=== PATIENT | male | born 1960 | race Two or more races ===

== ENCOUNTER → 2016-11-06 | Outpatient (CLI) | payer MEDICAID ==
[~2016-11-06] MED LIST: ADENOSINE 90 MG/30 ML INJ IV ONE; ADENOSINE 93 MG in GIVE UN-DILUTED 0 ML IV ONE
== END | disposition home or self-care (01) ==
LOC: Rad HDHVI 12:30
PROVIDERS: ATTEND Internal Medicine Cardiovascular Disease
DX: I25.10 Atherosclerotic heart disease of native coronary artery without angina pectoris (principal); I21.3 ST elevation (STEMI) myocardial infarction of unspecified site; I10 Essential (primary) hypertension; E11.9 Type 2 diabetes mellitus without complications; E78.5 Hyperlipidemia, unspecified; Z95.9 Presence of cardiac and vascular implant and graft, unspecified
CPT/HCPCS: 78452; 93005; 93306; 96374; 96375; A9500; J0153

== ENCOUNTER → 2016-11-21 | Outpatient (CLI) | payer MEDICAID ==
[~2016-11-21] MED LIST changes: -ADENOSINE 90 MG/30 ML INJ IV ONE; -ADENOSINE 93 MG in GIVE UN-DILUTED 0 ML IV ONE; +ASPI81TA27 PO; +ATOR40TA52 PO; +CLOP75TA41 PO; +FLUO-125 PO; +GABA-497 PO; +INSLANTI SC; +LISI-275 PO; +METF-370 PO; +METO25TA5 PO; +OME20T PO; +SACU1TAB PO; +SITA50TA PO
== END | disposition home or self-care (01) ==
LOC: Rad HDHVI 10:53
PROVIDERS: ATTEND Internal Medicine Cardiovascular Disease
DX: Z01.818 Encounter for other preprocedural examination (principal); I10 Essential (primary) hypertension; E78.00 Pure hypercholesterolemia, unspecified; E11.9 Type 2 diabetes mellitus without complications
CPT/HCPCS: 76770

== ENCOUNTER → 2016-11-28 | Outpatient (CLI) | payer MEDICAID ==
[~2016-11-28] MED LIST changes: -ASPI81TA27 PO; -ATOR40TA52 PO; -CLOP75TA41 PO; -FLUO-125 PO; -GABA-497 PO; -INSLANTI SC; +IOHEXOL 350 MG/ML 100ML IJ ONE; -LISI-275 PO; -METF-370 PO; -METO25TA5 PO; -OME20T PO; -SACU1TAB PO; -SITA50TA PO
[2016-11-28 10:30] VITALS: BP 122/82
[2016-11-28 12:00] VITALS: BP 131/84
== END | disposition home or self-care (01) ==
LOC: Rad HDHVI 10:24
PROVIDERS: ATTEND Internal Medicine Cardiovascular Disease
DX: I25.10 Atherosclerotic heart disease of native coronary artery without angina pectoris (principal); E11.9 Type 2 diabetes mellitus without complications; I21.3 ST elevation (STEMI) myocardial infarction of unspecified site; I10 Essential (primary) hypertension; E78.5 Hyperlipidemia, unspecified; Z95.9 Presence of cardiac and vascular implant and graft, unspecified
CPT/HCPCS: 82565; 96374; Q9967

== ENCOUNTER → 2016-12-05 | Outpatient (CLI) | payer MEDICAID ==
[~2016-12-05] MED LIST changes: +ASPI81TA27 PO; +ATOR40TA52 PO; +CLOP75TA41 PO; +FLUO-125 PO; +GABA-497 PO; +INSLANTI SC; -IOHEXOL 350 MG/ML 100ML IJ ONE; +LISI-275 PO; +METF-370 PO; +METO25TA5 PO; +OME20T PO; +SACU1TAB PO; +SITA50TA PO
[2016-12-05 11:05] VITALS: BP 116/83
[2016-12-05 11:35] VITALS: BP 124/80
== END | disposition home or self-care (01) ==
LOC: Rad HDHVI 10:48
PROVIDERS: ATTEND Internal Medicine Cardiovascular Disease
DX: Z01.818 Encounter for other preprocedural examination (principal)
CPT/HCPCS: 71020; 93005; G0463

== ENCOUNTER → 2017-01-08 | Outpatient (CLI) | payer MEDICAID ==
[~2017-01-08] VITALS: Ht 182.9 cm; Wt 111.1 kg
[2017-01-08 09:15] VITALS: BP 125/91
[2017-01-08 09:40] VITALS: BP 122/82
[2017-01-08 13:09] LABS: Basophils # (auto) 0.1 uL; Basophils % (auto) 0.8 % (0.0-2.0); Eosinophils # (auto) 0.2 uL; Eosinophils % (auto) 1.9 % (0.0-7.0); Hematocrit 39.9 % (41.0-53.0); Hemoglobin 13.2 g/dL (13.5-17.5); Lymphocytes # (auto) 1.7 uL; Lymphocytes % (auto) 21.2 % (10.0-50.0); Mean Corpuscular Hemoglobin 28.4 pg (28.0-32.0); Mean Corpuscular Hgb Conc. 33.1 g/dL (32.0-36.0); Mean Corpuscular Volume 85.9 fL (80.0-100.0); Mean Platelet Volume 10.7 fL (6.9-10.8); Monocytes # (auto) 0.7 uL; Monocytes % (auto) 8.6 % (0.0-12.0); Neutrophils # (auto) 5.5 uL; Neutrophils % (auto) 67.5 % (37.0-80.0); Nucleated Red Blood Cells % 0.2 %; Platelet Count (auto) 191 10^3/uL (140-450); Red Cell Distribution Width 14.5 % (11.8-14.3); White Blood Cell 8.1 10^3/uL (4.4-10.8)
[2017-01-08 13:14] LABS: INR 0.93 (0.9-1.15); Partial Thromboplastin Time 26.9 sec (22.64-33.71); Prothrombin Time 10.1 sec (9.37-12.3)
[2017-01-08 13:25] LABS: BUN/Creatinine Ratio 21.2; Calcium 8.3 mg/dL (8.5-10.1); Potassium 4.1 mmol/L (3.5-5.1)
== END | disposition home or self-care (01) ==
LOC: Rad HDHVI 09:03
PROVIDERS: ATTEND Internal Medicine Cardiovascular Disease
DX: Z01.818 Encounter for other preprocedural examination (principal); I51.7 Cardiomegaly; E78.00 Pure hypercholesterolemia, unspecified; I10 Essential (primary) hypertension; D64.9 Anemia, unspecified; R79.1 Abnormal coagulation profile; Z95.9 Presence of cardiac and vascular implant and graft, unspecified
CPT/HCPCS: 36415; 71020; 80048; 85025; 85610; 85730; 93005; G0463

== ENCOUNTER → 2017-07-05 | Outpatient (CLI) | payer MEDICAID ==
[~2017-07-05] MED LIST changes: -GABA-497 PO; +GABA300C10 PO
== END | disposition home or self-care (01) ==
LOC: Rad HDHVI 08:00
PROVIDERS: ATTEND Internal Medicine Cardiovascular Disease
DX: I34.0 Nonrheumatic mitral (valve) insufficiency (principal); I42.0 Dilated cardiomyopathy; E11.9 Type 2 diabetes mellitus without complications; I11.0 Hypertensive heart disease with heart failure; I50.23 Acute on chronic systolic (congestive) heart failure; E78.5 Hyperlipidemia, unspecified; Z87.891 Personal history of nicotine dependence
CPT/HCPCS: 93306

== ENCOUNTER 2018-10-01 11:49 | Inpatient (IN) | payer MEDICAID ==
[~2018-10-01] VITALS: Ht 182.9 cm; Wt 107.5 kg
[~2018-10-01 11:49] MED LIST changes: +ASPI-404 PO; -ASPI81TA27 PO
[2018-10-01] MEDS ORDERED: SODIUM CHLORIDE 0.9% 1,000 ML IV ONE ×2 (11:55→15:30)
[2018-10-01] MEDS ORDERED: DEXTROSE (50%) 50ML SYRG IV PRN ×2 (12:00→20:00)
[2018-10-01] MEDS ORDERED: ASPirin 81 mg TAB PO ONE (12:00)
[2018-10-01 13:04] LABS: Basophils # (auto) 0 uL; Basophils % (auto) 0.6 % (0.0-2.0); Eosinophils # (auto) 0.1 uL; Eosinophils % (auto) 1.3 % (0.0-7.0); Hematocrit 43.6 % (41.0-53.0); Hemoglobin 14.5 g/dL (13.5-17.5); Lymphocytes # (auto) 1.7 uL; Lymphocytes % (auto) 24.8 % (10.0-50.0); Mean Corpuscular Hemoglobin 29.2 pg (28.0-32.0); Mean Corpuscular Hgb Conc. 33.2 g/dL (32.0-36.0); Monocytes # (auto) 0.6 uL; Monocytes % (auto) 8.7 % (0.0-12.0); Neutrophils # (auto) 4.5 uL; Neutrophils % (auto) 64.6 % (37.0-80.0); Nucleated Red Blood Cells % 0.3 %; Platelet Count (auto) 174 10^3/uL (140-450); Red Blood Cells 4.96 10^6/uL (4.5-5.90); Red Cell Distribution Width 14.9 % (11.8-14.3)
[2018-10-01 13:07] LABS: Albumin 3.8 g/dL (3.4-5.0); Anion Gap 9 (5-15); Blood Urea Nitrogen 29 mg/dL (7-18); Calcium 9.5 mg/dL (8.5-10.1); Carbon Dioxide 24 mmol/L (21-32); Chloride 99 mmol/L (98-107); Potassium 4.8 mmol/L (3.5-5.1); Sodium 132 mmol/L (136-145)
[2018-10-01 13:09] LABS: Alanine Aminotransferase 125 U/L (16-61); Aspartate Aminotransferase 76 U/L (15-37); GFR African American 51 mL/min; GFR Non-African American 42 mL/min
[2018-10-01 13:17] LABS: Alkaline Phosphatase 109 U/L (45-117); Bilirubin, Total 0.7 mg/dL (0.2-1.0)
[2018-10-01 13:19] LABS: INR < 0.93 (0.9-1.15); Partial Thromboplastin Time 25.6 sec (23.64-32.05)
[2018-10-01 13:21] LABS: BUN/Creatinine Ratio 16.5
[2018-10-01 13:25] LABS: Glucose 600 mg/dL (74-106)
[2018-10-01] MEDS ORDERED: NITROGLYCERIN 0.4 MG SL TAB SL PRN (15:00)
[2018-10-01] MEDS ORDERED: MORPHINE SULF INJ 2 MG/ML SYRINGE 1ML IV PRN (15:00)
[2018-10-01] MEDS ORDERED: SODIUM CHLORIDE 0.9% 1,000 ML IV SCH (15:00)
[2018-10-01] MEDS ORDERED: InsuLIN REG 1unit/0.01ml Soln (100units/ml) IV ONE (15:30)
[2018-10-01] MEDS: ACCU-CHEK COMFORT CURVE STRIP VI SCH ×11 (15:46→23:22)
[2018-10-01] MEDS: SODIUM CHLORIDE 0.9% 1,000 ML IV SCH ×2 (16:08→23:29)
[2018-10-01] MEDS: InsuLIN R (HUMAN) 100 UNITS in SODIUM CHL 0.9% 99 ML IV SCH (16:09)
[2018-10-01 17:12] LABS: Urine Bacteria NONE SEEN /hpf (None Seen); Urine Blood Negative /uL (Negative); Urine Specific Gravity 1.017 (1.001-1.035); Urine WBC <1 /hpf (0 - 3)
[2018-10-01] MEDS ORDERED: GABA-339 PO (18:37)
[2018-10-01] MEDS ORDERED: FURO40TA4 PO (18:37)
[2018-10-01] MEDS ORDERED: POTA10TA51 PO (18:38)
[2018-10-01] MEDS ORDERED: INSULIN LANTUS (GLARGINE) 1 /0.01ml (100units/ml) SC ONE (20:00)
[2018-10-01] MEDS: InsuLIN REG 1unit/0.01ml Soln (100units/ml) SC SCH (20:21)
[2018-10-01] MEDS ORDERED: ATORVASTATIN 20 MG TAB PO SCH (22:00)
[2018-10-01] MEDS: FAMOTIDINE (10MG/ML) 2ML VL IV SCH (23:05)
[2018-10-01] MEDS: METOPROLOL TARTRATE 25 MG TAB PO SCH (23:05)
[2018-10-01] MEDS: SACUBITRIL-VALSARTAN 24mg/26mg TAB PO SCH (23:05)
[2018-10-02] MEDS: ACCU-CHEK COMFORT CURVE STRIP VI SCH ×4 (00:53→08:07)
[2018-10-02] MEDS: InsuLIN REG 1unit/0.01ml Soln (100units/ml) SC SCH ×3 (01:02→08:00)
[2018-10-02 05:51] LABS: Basophils # (auto) 0 uL; Basophils % (auto) 0.6 % (0.0-2.0); Eosinophils # (auto) 0.1 uL; Eosinophils % (auto) 2.4 % (0.0-7.0); Hematocrit 38.6 % (41.0-53.0); Hemoglobin 13.2 g/dL (13.5-17.5); Lymphocytes # (auto) 2.3 uL; Lymphocytes % (auto) 38.9 % (10.0-50.0); Mean Corpuscular Hemoglobin 29.8 pg (28.0-32.0); Mean Corpuscular Hgb Conc. 34.3 g/dL (32.0-36.0); Mean Corpuscular Volume 86.9 fL (80.0-100.0); Monocytes # (auto) 0.5 uL; Monocytes % (auto) 8.2 % (0.0-12.0); Neutrophils # (auto) 2.9 uL; Neutrophils % (auto) 49.9 % (37.0-80.0); Nucleated Red Blood Cells % 0.1 %; Platelet Count (auto) 143 10^3/uL (140-450); Red Blood Cells 4.44 10^6/uL (4.5-5.90); Red Cell Distribution Width 14.3 % (11.8-14.3); White Blood Cell 5.8 10^3/uL (4.4-10.8)
[2018-10-02 06:08] LABS: Calcium 8.7 mg/dL (8.5-10.1)
[2018-10-02 06:38] LABS: Potassium 3.9 mmol/L (3.5-5.1)
[2018-10-02 06:42] LABS: BUN/Creatinine Ratio 22.1; Bilirubin, Total 0.6 mg/dL (0.2-1.0); Total Protein 6.7 g/dL (6.4-8.2)
[2018-10-02] MEDS: SODIUM CHLORIDE 0.9% 1,000 ML IV SCH (07:43)
[2018-10-02] MEDS ORDERED: CLOPIDOGREL BISULFATE 75 MG TAB PO SCH (10:00)
[2018-10-02] MEDS ORDERED: ASPirin-EC 81 mg tab PO SCH (10:00)
[2018-10-02] MEDS: SACUBITRIL-VALSARTAN 24mg/26mg TAB PO SCH (10:10)
[2018-10-02] MEDS: FAMOTIDINE (10MG/ML) 2ML VL IV SCH (10:10)
[2018-10-02] MEDS: METOPROLOL TARTRATE 25 MG TAB PO SCH (10:11)
[2018-10-02 11:22] VITALS: BP 98/48
[2018-10-02] MEDS ORDERED: INSULIN LANTUS (GLARGINE) 1 /0.01ml (100units/ml) SC SCH (22:00)
== END 2018-10-02 23:37 | disposition home or self-care (01) | DRG 469 ==
LOC: ER 11:49 → OVERFLOW 11:50
PROVIDERS: ADMIT Nurse Practitioner Acute Care; ATTEND Internal Medicine
DX: N17.0 Acute kidney failure with tubular necrosis (principal); E11.40 Type 2 diabetes mellitus with diabetic neuropathy, unspecified; I42.9 Cardiomyopathy, unspecified; E44.1 Mild protein-calorie malnutrition; E11.65 Type 2 diabetes mellitus with hyperglycemia; L02.411 Cutaneous abscess of right axilla; F17.210 Nicotine dependence, cigarettes, uncomplicated; I10 Essential (primary) hypertension; E66.9 Obesity, unspecified; E78.5 Hyperlipidemia, unspecified; I25.10 Atherosclerotic heart disease of native coronary artery without angina pectoris; Z79.4 Long term (current) use of insulin; Z95.5 Presence of coronary angioplasty implant and graft; Z95.810 Presence of automatic (implantable) cardiac defibrillator; Z68.32 Body mass index [BMI] 32.0-32.9, adult; Z91.018 Allergy to other foods; Z79.02 Long term (current) use of antithrombotics/antiplatelets; Z79.899 Other long term (current) drug therapy; Z82.49 Family history of ischemic heart disease and other diseases of the circulatory system; Z83.3 Family history of diabetes mellitus
CPT/HCPCS: 36415; 71046; 80053; 80061; 81001; 82962; 83036; 83880; 84484; 85025; 85610; 85730; 93005; G0378; J1815; J3490

== ENCOUNTER 2019-12-17 14:23 | Emergency (ER) | payer MEDICAID ==
[~2019-12-17] VITALS: Ht 180.3 cm; Wt 108.9 kg
[~2019-12-17 14:23] MED LIST changes: -ASPI-404 PO; +ASPI-543 PO; +FURO40TA4 PO; +GABA-339 PO; -GABA300C10 PO; -LISI-275 PO; +POTA10TA51 PO; -SITA50TA PO
[2019-12-17 14:36] VITALS: BP 121/73
[2019-12-17 14:56] LABS: Urine WBC None Seen /hpf (0 - 3)
[2019-12-17 15:14] LABS: Basophils # (auto) 0.1 10 ^3/uL (0-0.2); Basophils % (auto) 0.7 % (0.0-2.0); Eosinophils # (auto) 0.1 10 ^3/uL (0-0.8); Eosinophils % (auto) 1.2 % (0.0-7.0); Hematocrit 43.6 % (41.0-53.0); Hemoglobin 14.5 g/dL (13.5-17.5); Lymphocytes # (auto) 2.5 10 ^3/uL (0.4-5.4); Lymphocytes % (auto) 30.8 % (10.0-50.0); Mean Corpuscular Hemoglobin 29.2 pg (28.0-32.0); Mean Corpuscular Hgb Conc. 33.3 g/dL (32.0-36.0); Mean Corpuscular Volume 87.7 fL (80.0-100.0); Monocytes # (auto) 0.7 10 ^3/uL (0-1.3); Monocytes % (auto) 8.7 % (0.0-12.0); Neutrophils # (auto) 4.8 10 ^3/uL (1.6-8.6); Neutrophils % (auto) 58.6 % (37.0-80.0); Nucleated Red Blood Cells % 0.1 %; Platelet Count (auto) 203 10^3/uL (140-450); Red Blood Cells 4.98 10^6/uL (4.5-5.90); Red Cell Distribution Width 13.9 % (11.8-14.3); White Blood Cell 8.1 10^3/uL (4.4-10.8)
[2019-12-17 15:26] LABS: Urine Bacteria NONE SEEN /hpf (None Seen); Urine Blood TRACE /uL (Negative); Urine Specific Gravity 1.023 (1.001-1.035)
[2019-12-17 15:28] LABS: Alanine Aminotransferase 85 U/L (16-61); Albumin 3.7 g/dL (3.4-5.0); Anion Gap 4 (5-15); Blood Urea Nitrogen 13 mg/dL (7-18); Calcium 9.1 mg/dL (8.5-10.1); Carbon Dioxide 27 mmol/L (21-32); Chloride 105 mmol/L (98-107); Potassium 4.9 mmol/L (3.5-5.1); Sodium 136 mmol/L (136-145)
[2019-12-17 15:33] LABS: Alkaline Phosphatase 124 U/L (45-117); Aspartate Aminotransferase 60 U/L (15-37); Bilirubin, Total 0.5 mg/dL (0.2-1.0); GFR African American 67 mL/min; GFR Non-African American 55 mL/min; Total Protein 8.2 g/dL (6.4-8.2)
[2019-12-17 15:38] LABS: Glucose 440 mg/dL (74-106)
[2019-12-17 15:39] LABS: BUN/Creatinine Ratio 9.4
[2019-12-17] MEDS ORDERED: InsuLIN REG 1unit/0.01ml Soln (100units/ml) SC ONE (16:15)
== END 2019-12-17 21:30 | disposition left against medical advice (07) ==
LOC: ER 14:23
DX: E11.65 Type 2 diabetes mellitus with hyperglycemia (principal); E11.22 Type 2 diabetes mellitus with diabetic chronic kidney disease; I12.9 Hypertensive chronic kidney disease with stage 1 through stage 4 chronic kidney disease, or unspecified chronic kidney disease; N18.30 Chronic kidney disease, stage 3 unspecified; R74.8 Abnormal levels of other serum enzymes; F17.210 Nicotine dependence, cigarettes, uncomplicated; E78.5 Hyperlipidemia, unspecified; Z90.49 Acquired absence of other specified parts of digestive tract; Z79.899 Other long term (current) drug therapy; Z79.82 Long term (current) use of aspirin
CPT/HCPCS: 36415; 80053; 81001; 82010; 82962; 83880; 84484; 85025; 93005

== ENCOUNTER 2020-10-26 15:06 | Emergency (ER) | payer MEDICAID ==
[~2020-10-26] VITALS: Ht 177.8 cm; Wt 113.4 kg
[~2020-10-26 15:06] MED LIST changes: -CLOP75TA41 PO; +CLOP75TA70 PO
[2020-10-26 16:13] LABS: Basophils # (auto) 0.1 10 ^3/uL (0-0.2); Basophils % (auto) 0.9 % (0.0-2.0); Eosinophils # (auto) 0.1 10 ^3/uL (0-0.8); Eosinophils % (auto) 2.4 % (0.0-7.0); Hematocrit 30.2 % (41.0-53.0); Hemoglobin 9.9 g/dL (13.5-17.5); Lymphocytes # (auto) 0.9 10 ^3/uL (0.4-5.4); Lymphocytes % (auto) 14.6 % (10.0-50.0); Mean Corpuscular Hgb Conc. 32.6 g/dL (32.0-36.0); Mean Corpuscular Volume 85.9 fL (80.0-100.0); Monocytes # (auto) 0.6 10 ^3/uL (0-1.3); Monocytes % (auto) 10.4 % (0.0-12.0); Neutrophils # (auto) 4.4 10 ^3/uL (1.6-8.6); Neutrophils % (auto) 71.7 % (37.0-80.0); Nucleated Red Blood Cells % 0.1 %; Red Blood Cells 3.52 10^6/uL (4.5-5.90); Red Cell Distribution Width 18.1 % (11.8-14.3); White Blood Cell 6.1 10^3/uL (4.4-10.8)
[2020-10-26 16:22] LABS: Albumin 2.6 g/dL (3.4-5.0); Anion Gap 6 (5-15); Blood Urea Nitrogen 34 mg/dL (7-18); Calcium 8.6 mg/dL (8.5-10.1); Carbon Dioxide 24 mmol/L (21-32); Chloride 109 mmol/L (98-107); Glucose 196 mg/dL (74-106); Potassium 5.2 mmol/L (3.5-5.1); Sodium 139 mmol/L (136-145)
[2020-10-26 16:25] LABS: Alanine Aminotransferase 24 U/L (16-61); Aspartate Aminotransferase 32 U/L (15-37); GFR African American 64 mL/min; GFR Non-African American 53 mL/min
[2020-10-26 16:29] LABS: Alkaline Phosphatase 310 U/L (45-117); Bilirubin, Total 0.8 mg/dL (0.2-1.0)
[2020-10-26 16:33] LABS: BUN/Creatinine Ratio 23.6
[2020-10-26 19:52] VITALS: BP 122/84
== END 2020-10-26 19:56 | disposition admitted as inpatient to this hospital (09) ==
LOC: EDBD 15:06 → ER 15:06
DX: I13.0 Hypertensive heart and chronic kidney disease with heart failure and stage 1 through stage 4 chronic kidney disease, or unspecified chronic kidney disease (principal); E11.22 Type 2 diabetes mellitus with diabetic chronic kidney disease; E11.65 Type 2 diabetes mellitus with hyperglycemia; N18.9 Chronic kidney disease, unspecified; I50.9 Heart failure, unspecified; I25.10 Atherosclerotic heart disease of native coronary artery without angina pectoris; E78.5 Hyperlipidemia, unspecified; F17.210 Nicotine dependence, cigarettes, uncomplicated; Z90.49 Acquired absence of other specified parts of digestive tract; Z95.0 Presence of cardiac pacemaker
CPT/HCPCS: 36415; 71045; 80053; 83880; 84484; 85025; 93005; 93970

== ENCOUNTER 2021-02-17 13:14 | Inpatient (IN) | payer MEDICAID ==
[~2021-02-17] VITALS: Ht 180.3 cm; Wt 90.0 kg
[2021-02-17] MEDS ORDERED: FUROSEMIDE 40 MG/4 ML VIAL IV ONE (17:30)
[2021-02-17 17:37] LABS: Basophils # (auto) 0.1 10 ^3/uL (0-0.2); Basophils % (auto) 1.4 % (0.0-2.0); Eosinophils # (auto) 0.2 10 ^3/uL (0-0.8); Eosinophils % (auto) 3.2 % (0.0-7.0); Hematocrit 32.2 % (41.0-53.0); Hemoglobin 10.4 g/dL (13.5-17.5); Lymphocytes # (auto) 1.3 10 ^3/uL (0.4-5.4); Lymphocytes % (auto) 23.1 % (10.0-50.0); Mean Corpuscular Hemoglobin 26.3 pg (28.0-32.0); Mean Corpuscular Hgb Conc. 32.3 g/dL (32.0-36.0); Mean Corpuscular Volume 81.5 fL (80.0-100.0); Monocytes # (auto) 0.5 10 ^3/uL (0-1.3); Monocytes % (auto) 9.3 % (0.0-12.0); Neutrophils # (auto) 3.6 10 ^3/uL (1.6-8.6); Red Blood Cells 3.95 10^6/uL (4.5-5.90); White Blood Cell 5.7 10^3/uL (4.4-10.8)
[2021-02-17 17:39] LABS: Red Cell Distribution Width 21.2 % (11.8-14.3)
[2021-02-17 17:42] LABS: Albumin 3.1 g/dL (3.4-5.0); Calcium 8.8 mg/dL (8.5-10.1); Magnesium 3.2 mg/dL (1.6-2.6); Potassium 4.1 mmol/L (3.5-5.1)
[2021-02-17 17:47] LABS: BUN/Creatinine Ratio 20.4; Bilirubin, Total 2.3 mg/dL (0.2-1.0); Total Protein 8.2 g/dL (6.4-8.2)
[2021-02-18] MEDS ORDERED: GABAPENTIN 300 MG CAP PO ONE (05:45)
[2021-02-18] MEDS ORDERED: FUROSEMIDE 40 MG/4 ML VIAL IV ONE (07:15)
[2021-02-18] MEDS ORDERED: HYDROcodone-ACET 10/325MG TAB PO ONE (10:00)
[2021-02-18] MEDS ORDERED: APIX5TAB PO (10:36)
[2021-02-18] MEDS ORDERED: LURA40TA PO (10:36)
[2021-02-18] MEDS ORDERED: CYCL-839 PO (10:42)
[2021-02-18] MEDS ORDERED: CARV3.1240 PO (10:42)
[2021-02-18] MEDS ORDERED: DULO60CA PO (10:43)
[2021-02-18] MEDS ORDERED: SACU1TAB7 PO (10:45)
[2021-02-18] MEDS ORDERED: NITR0.4S29 SL (10:47)
[2021-02-18] MEDS ORDERED: INSLANTI SC (10:50)
[2021-02-18] MEDS ORDERED: HYDR-4798 PO (10:51)
[2021-02-18] MEDS ORDERED: CYCLOBENZAPRINE HCL 10 MG TAB PO PRN (11:45)
[2021-02-18] MEDS ORDERED: NITROGLYCERIN 0.4 MG SL TAB SL PRN (11:45)
[2021-02-18] MEDS ORDERED: GABAPENTIN 300 MG CAP PO PRN (12:00)
[2021-02-18] MEDS: INSULIN LANTUS (GLARGINE) 1 /0.01ml (100units/ml) SC SCH (20:20)
[2021-02-18] MEDS: FUROSEMIDE 40 MG/4 ML VIAL IV SCH (20:53)
[2021-02-18] MEDS: HYDROcodone-ACET 10/325MG TAB PO PRN (21:50)
[2021-02-18] MEDS: CARVEDILOL 3.125 MG TAB PO SCH (21:52)
[2021-02-18] MEDS ORDERED: Sacubitril-Valsartan (Entresto 49-51 mg) TAB PO SCH (22:00)
[2021-02-18] MEDS ORDERED: ATORVASTATIN 20 MG TAB PO SCH (22:00)
[2021-02-18] MEDS ORDERED: APIXABAN 5 MG TAB PO SCH (22:00)
[2021-02-18] MEDS ORDERED: DULoxetine HCL 30 MG CAP PO SCH (22:00)
[2021-02-18] MEDS: SACUBITRIL-VALSARTAN 24mg/26mg TAB PO SCH (22:30)
[2021-02-18 22:50] VITALS: BP 101/74
[2021-02-18 23:40] LABS: INR 1.17 (0.9-1.15)
[2021-02-19 05:00] VITALS: BP 103/70
[2021-02-19 05:39] LABS: Calcium 8.8 mg/dL (8.5-10.1); Potassium 4.2 mmol/L (3.5-5.1)
[2021-02-19] MEDS: FUROSEMIDE 40 MG/4 ML VIAL IV SCH (06:10)
[2021-02-19] MEDS: INSULIN LANTUS (GLARGINE) 1 /0.01ml (100units/ml) SC SCH ×2 (06:26→11:49)
[2021-02-19] MEDS: SACUBITRIL-VALSARTAN 24mg/26mg TAB PO SCH (08:59)
[2021-02-19 09:00] VITALS: BP 121/73
[2021-02-19] MEDS: CARVEDILOL 3.125 MG TAB PO SCH (09:00)
[2021-02-19] MEDS: HYDROcodone-ACET 10/325MG TAB PO PRN (09:53)
[2021-02-19] MEDS ORDERED: ASPirin-EC 81 mg tab PO SCH (10:00)
[2021-02-19] MEDS ORDERED: FLUoxetine HCL 20 MG CAP PO SCH (10:00)
[2021-02-19] MEDS ORDERED: PANTOPRAZOLE 40 MG TAB PO SCH (10:00)
[2021-02-19 13:07] VITALS: BP 113/73
[2021-02-19] MEDS ORDERED: FURO40TA4 PO (14:28)
[2021-02-19] MEDS ORDERED: ALBUAER3 IN (14:28)
[2021-02-19 14:32] VITALS: BP 113/73
== END 2021-02-19 15:26 | disposition home health service (06) | DRG 194 ==
LOC: ER 13:14 → TELE 02-18 11:28 → TELE-CENTR 02-18 22:50
PROVIDERS: ADMIT Internal Medicine; ATTEND Internal Medicine
PROC: 0W993ZZ Drainage of Right Pleural Cavity, Percutaneous Approach (ICD-10-PCS; principal; 2021-02-19)
DX: I13.0 Hypertensive heart and chronic kidney disease with heart failure and stage 1 through stage 4 chronic kidney disease, or unspecified chronic kidney disease (principal); J96.20 Acute and chronic respiratory failure, unspecified whether with hypoxia or hypercapnia; J91.8 Pleural effusion in other conditions classified elsewhere; E11.22 Type 2 diabetes mellitus with diabetic chronic kidney disease; E11.40 Type 2 diabetes mellitus with diabetic neuropathy, unspecified; E78.5 Hyperlipidemia, unspecified; F17.210 Nicotine dependence, cigarettes, uncomplicated; I25.10 Atherosclerotic heart disease of native coronary artery without angina pectoris; I25.5 Ischemic cardiomyopathy; I48.0 Paroxysmal atrial fibrillation; J98.11 Atelectasis; N18.30 Chronic kidney disease, stage 3 unspecified; F32.9 Major depressive disorder, single episode, unspecified; Z20.822 Contact with and (suspected) exposure to COVID-19; Z79.01 Long term (current) use of anticoagulants; Z79.4 Long term (current) use of insulin; Z79.899 Other long term (current) drug therapy; Z95.5 Presence of coronary angioplasty implant and graft; Z95.810 Presence of automatic (implantable) cardiac defibrillator; Z88.8 Allergy status to other drugs, medicaments and biological substances
CPT/HCPCS: 32555; 36415; 71045; 76604; 80048; 80053; 82962; 83735; 83880; 84484; 85025; 85610; 87426; 93005; 93306; 96374; 96376; 99291; G0378; J1815